=== PATIENT | female | born 1985 | race Hispanic/Latino ===

== ENCOUNTER 2017-01-26 15:35 | Emergency (ER) | payer OTHER ==
[2017-01-26 16:14] VITALS: BP 122/85
== END 2017-01-26 21:38 | disposition left against medical advice (07) ==
LOC: ED 15:35
DX: J11.1 Influenza due to unidentified influenza virus with other respiratory manifestations (principal); Z53.21 Procedure and treatment not carried out due to patient leaving prior to being seen by health care provider

== ENCOUNTER 2017-07-19 12:12 | Emergency (ER) | payer OTHER ==
[2017-07-19] MEDS ORDERED: NORCO 5/325 PO ONE (13:19)
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
[2017-07-19 15:55] LABS: HCG Qualitative,Urine Negative (Negative)
--- NOTE | 2017-07-19 16:49 | XRay Report ---
FINAL REPORT PROCEDURE: XR RIBS UNI W PA CHEST 3+V RT TECHNIQUE: RIGHT rib radiographs, 3 views of the ribs, including PA chest. HISTORY: right rib pain COMPARISON: No prior studies are available for comparison. FINDINGS: No acute or focal rib abnormalities are seen. No displaced fractures are identified. Lungs are clear. No infiltrates masses or effusions are identified. Heart size and pulmonary vasculature appear normal. IMPRESSION: Negative examination.
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
[2017-07-19 18:38] VITALS: BP 116/72
== END 2017-07-19 18:37 | disposition home or self-care (01) ==
LOC: ED 12:12
DX: S20.211A Contusion of right front wall of thorax, initial encounter (principal); S00.81XA Abrasion of other part of head, initial encounter; Z88.1 Allergy status to other antibiotic agents; F17.200 Nicotine dependence, unspecified, uncomplicated; K80.81 Other cholelithiasis with obstruction; V89.2XXA Person injured in unspecified motor-vehicle accident, traffic, initial encounter; Y93.89 Activity, other specified; Y92.89 Other specified places as the place of occurrence of the external cause; Y99.8 Other external cause status
CPT/HCPCS: 76700; 81025; 99284